=== PATIENT | male | born 1980 | race Caucasian/White ===

== ENCOUNTER 2016-07-16 06:32 | Day surgery (SDC) | payer OTHER ==
[~2016-07-16] VITALS: Ht 190.5 cm; Wt 137.9 kg
[~2016-07-16 06:32] MED LIST: LAMICTAL100 MG PO; PROTONIX40 MG PO; PROZAC20 MG PO; WELLBUTRIN SR100 MG PO
[2016-07-16 07:05] VITALS: BP 123/83
[2016-07-16] MEDS ORDERED: PERCOCET 5/31 TABLET PO (09:40)
[2016-07-16 11:40] VITALS: BP 123/70
[2016-07-16 12:21] VITALS: BP 136/76
== END 2016-07-16 12:26 | disposition home or self-care (01) ==
LOC: SDC 06:32
DX: L98.8 Other specified disorders of the skin and subcutaneous tissue (principal); K21.9 Gastro-esophageal reflux disease without esophagitis; Z82.5 Family history of asthma and other chronic lower respiratory diseases; Z80.0 Family history of malignant neoplasm of digestive organs
CPT/HCPCS: 88304; J0690; J1170; J1885; J2250; J2405; J3010; S0020

== ENCOUNTER → 2016-10-05 | Outpatient (CLI) | payer OTHER ==
[~2016-10-05] MED LIST changes: +PERCOCET 5/31 TABLET PO
== END | disposition home or self-care (01) ==
LOC: AMB 08-24 09:30
DX: L72.0 Epidermal cyst (principal)
CPT/HCPCS: 88304

== ENCOUNTER 2016-11-23 04:28 | Observation (INO) | payer OTHER ==
[~2016-11-23] VITALS: Ht 190.5 cm; Wt 121.0 kg
[2016-11-23 04:59] LABS: HEMATOCRIT 46.5 % (38.0-50.0); MCH 27.6 PG (29.0-34.0); MCHC 34.2 G/DL (30.0-36.0); MCV 80.7 FL (86-99); MEAN PLAT.VOLUME 11.1 uM^3 (9.0-12.4); PLATELET COUNT 197 K/uL (156-360); RBC DIS.WIDTH-CV 12.6 % (11.8-14.6); RBC DIS.WIDTH-SD 36.3 % (39-53); RED BLOOD COUNT 5.76 M/uL (4.00-5.50); WHITE BLOOD COUNT 6.2 K/uL (4.1-10.2)
[2016-11-23 05:09] LABS: CHLORIDE 109 mEq/L (99-109); SODIUM 140 mEq/L (136-147)
[2016-11-23 05:10] LABS: GLUCOSE 110 mg/dL (70-99)
[2016-11-23 05:11] LABS: D-DIMER ELISA 0.16 mg/L FEU (< 0.57); INTER. NORMALIZED RATIO 1.1; PROTHROMBIN TIME 11.6 (9.2-11.2); PTT 28.2 (25-32)
[2016-11-23 05:12] LABS: ANION GAP 8 MEQ/L (2-14)
[2016-11-23 05:14] LABS: GFR ESTIMATE (CALCULATED) > 59 mL/min/
[2016-11-23 05:15] LABS: UREA NITROGEN (BUN) 20 mg/dL (9-23)
[2016-11-23 05:18] LABS: TROP-I INTERPRETATION NEGATIVE; TROPONIN-I < 0.01 ng/mL (0.0-0.30)
[2016-11-23 07:48] LABS: TOTAL BILIRUBIN 0.7 mg/dL (0.0-1.0)
[2016-11-23 08:27] LABS: ALKALINE PHOSPHATASE 50 IU/L (3-129)
[2016-11-23] MEDS ORDERED: WELLBUTRIN SR150 MG PO (08:27)
[2016-11-23] MEDS ORDERED: PROZAC40 MG PO (08:27)
[2016-11-23 08:30] LABS: DIRECT BILIRUBIN 0.1 mg/dL (0.0-0.3); LIPASE 45 U/L (1.0-51.0)
[2016-11-23 09:06] VITALS: BP 142/74
[2016-11-23 11:11] VITALS: BP 121/63
[2016-11-23 11:41] LABS: TROP-I INTERPRETATION NEGATIVE; TROPONIN-I < 0.01 ng/mL (0.0-0.30)
[2016-11-23 15:28] VITALS: BP 111/66
[2016-11-23 18:17] LABS: TROP-I INTERPRETATION NEGATIVE; TROPONIN-I < 0.01 ng/mL (0.0-0.30)
== END 2016-11-23 18:56 | disposition home or self-care (01) ==
LOC: EME 04:28 → EDOF 07:54 → 5WEST 08:59
PROVIDERS: Emergency Medicine; Internal Medicine
DX: R07.89 Other chest pain (principal); R94.31 Abnormal electrocardiogram [ECG] [EKG]; K21.9 Gastro-esophageal reflux disease without esophagitis; K20.9 Esophagitis, unspecified; M51.26 Other intervertebral disc displacement, lumbar region; Z87.891 Personal history of nicotine dependence; E66.9 Obesity, unspecified; Z68.33 Body mass index [BMI] 33.0-33.9, adult; G89.29 Other chronic pain; F41.9 Anxiety disorder, unspecified
CPT/HCPCS: 71020; 80048; 80076; 81003; 83690; 84484; 85027; 85379; 85610; 85730; 93005; G0378; J2270; J7030; S0028

== ENCOUNTER 2017-07-27 12:47 | Emergency (ER) | payer OTHER ==
[~2017-07-27] VITALS: Ht 190.5 cm; Wt 108.3 kg
[~2017-07-27 12:47] MED LIST changes: +PROZAC40 MG PO; +WELLBUTRIN SR150 MG PO
[2017-07-27 13:06] LABS: HEMATOCRIT 45.8 % (38.0-50.0); HEMOGLOBIN 15.8 G/DL (12.5-16.6); MCH 29.4 PG (29.0-34.0); MCHC 34.5 G/DL (30.0-36.0); MCV 85.3 FL (86-99); PLATELET COUNT 197 K/uL (156-360); RBC DIS.WIDTH-CV 12.9 % (11.8-14.6); RED BLOOD COUNT 5.37 M/uL (4.00-5.50); WHITE BLOOD COUNT 6.3 K/uL (4.1-10.2)
[2017-07-27 13:14] LABS: CHLORIDE 107 mEq/L (99-109); POTASSIUM 4.3 mEq/L (3.7-5.4); SODIUM 141 mEq/L (136-147)
[2017-07-27 13:16] LABS: GLUCOSE 79 mg/dL (70-99)
[2017-07-27 13:20] LABS: CREATININE 1.1 mg/dL (0.6-1.3); GFR ESTIMATE (CALCULATED) > 59 mL/min/ (58.99-99999)
[2017-07-27 13:21] LABS: UREA NITROGEN (BUN) 14 mg/dL (9-23)
[2017-07-27 13:26] LABS: TROP-I INTERPRETATION NEGATIVE; TROPONIN-I < 0.01 ng/mL (0.0-0.30)
[2017-07-27 16:29] LABS: TROP-I INTERPRETATION NEGATIVE; TROPONIN-I < 0.01 ng/mL (0.0-0.30)
[2017-07-27] MEDS ORDERED: ZANTAC150 MG PO (16:32)
[2017-07-27 16:52] VITALS: BP 136/72
== END 2017-07-27 16:58 | disposition home or self-care (01) ==
LOC: EME 12:47
PROVIDERS: Physician Assistant
DX: R07.9 Chest pain, unspecified (principal); K21.9 Gastro-esophageal reflux disease without esophagitis; F41.9 Anxiety disorder, unspecified; F32.9 Major depressive disorder, single episode, unspecified; Z87.442 Personal history of urinary calculi; Z87.891 Personal history of nicotine dependence
CPT/HCPCS: 71046; 80048; 84484; 85027; 93005; 99281; 99285

== ENCOUNTER 2017-09-17 20:59 | Emergency (ER) | payer OTHER ==
[~2017-09-17] VITALS: Ht 190.5 cm; Wt 104.4 kg
[~2017-09-17 20:59] MED LIST changes: +ZANTAC150 MG PO
[2017-09-17 21:39] LABS: HEMATOCRIT 44.6 % (38.0-50.0); HEMOGLOBIN 15.9 G/DL (12.5-16.6); MCH 29.3 PG (29.0-34.0); MCHC 35.7 G/DL (30.0-36.0); MCV 82.1 FL (86-99); PLATELET COUNT 188 K/uL (156-360); RBC DIS.WIDTH-CV 12.5 % (11.8-14.6); RBC DIS.WIDTH-SD 37.2 % (39-53); RED BLOOD COUNT 5.43 M/uL (4.00-5.50); WHITE BLOOD COUNT 10.4 K/uL (4.1-10.2)
[2017-09-17 21:50] LABS: ALBUMIN 4.4 g/dL (3.2-4.8); CHLORIDE 109 mEq/L (99-109); POTASSIUM 3.8 mEq/L (3.7-5.4); SODIUM 139 mEq/L (136-147)
[2017-09-17 21:52] LABS: GLUCOSE 97 mg/dL (70-99); TOTAL PROTEIN 6.8 g/dL (6.4-8.3)
[2017-09-17 21:54] LABS: TOTAL BILIRUBIN 0.7 mg/dL (0.0-1.0)
[2017-09-17 21:55] LABS: ALKALINE PHOSPHATASE 77 IU/L (3-129)
[2017-09-17 21:56] LABS: CREATININE 1.1 mg/dL (0.6-1.3); GFR ESTIMATE (CALCULATED) > 59 mL/min/ (58.99-99999)
[2017-09-17 21:57] LABS: AST (GOT) 91 IU/L (2-34); UREA NITROGEN (BUN) 22 mg/dL (9-23)
[2017-09-17 21:59] LABS: ALT (GPT) 73 IU/L (3-49)
[2017-09-17 22:01] LABS: APPEARANCE SL.HAZY ((CLEAR)); BILIRUBIN NEGATIVE; BLOOD NEGATIVE; COLOR YELLOW ((YELLOW)); GLUCOSE (STRIP) NEGATIVE; KETONES 5; LEUKOCYTES NEGATIVE; NITRITE NEGATIVE; PROTEIN (STRIP) NEGATIVE; SPECIFIC GRAVITY 1.018 (1.000-1.030)
[2017-09-17 22:20] LABS: AMORPHOUS URATES CRYSTALS 2+; BACTERIA NONE SEEN /HPF; EPITHELIAL CELLS NONE SEEN /HPF; MUCUS NONE SEEN /LPF; RED BLOOD CELLS NONE SEEN /HPF (0-5); UCUL ADDED? NO; WHITE BLOOD CELLS NONE SEEN /HPF (0-5)
[2017-09-17 23:11] LABS: AMYLASE 43 IU/L (1-118)
[2017-09-17 23:20] LABS: LIPASE 31 U/L (1.0-51.0)
[2017-09-18 00:56] VITALS: BP 126/68
== END 2017-09-18 01:06 | disposition home or self-care (01) ==
LOC: EME 20:59
DX: R10.12 Left upper quadrant pain (principal); N20.0 Calculus of kidney; R16.1 Splenomegaly, not elsewhere classified; K21.9 Gastro-esophageal reflux disease without esophagitis; F41.9 Anxiety disorder, unspecified; F32.9 Major depressive disorder, single episode, unspecified; Z87.891 Personal history of nicotine dependence
CPT/HCPCS: 74176; 80053; 81003; 82150; 83690; 85027; 99281; 99284